=== PATIENT | male | born 1980 | race Two or more races ===

== ENCOUNTER 2022-07-03 04:10 | Emergency (ER) | payer OTHER ==
[~2022-07-03] VITALS: Ht 167.6 cm; Wt 81.6 kg
--- NOTE | 2022-07-03 04:19 | NUR ---
BIB [facility] FOR OTB. "PT TAKEN UNKNOWN MEDICATION Q 8 HOURS FOR TACHYCARDIA". A/OX 3. TOLERATING R/A WELL WITH NO RESP DISTRESS. RR EVEN AND NON LABORED. AMBULATORY WITH STEADY GAIT. SAFETY MEASURES IN PLACE.
--- NOTE | 2022-07-03 04:40 | NUR ---
Patient discharged to [facility] custody in stable condition. Written and verbal after care instructions given. Patient verbalizes understanding of instruction.
[2022-07-03 04:42] VITALS: BP 132/94
== END 2022-07-03 04:43 ==
LOC: ER 04:13
DX: Z00.00 Encounter for general adult medical examination without abnormal findings (principal); Z86.79 Personal history of other diseases of the circulatory system; F17.200 Nicotine dependence, unspecified, uncomplicated